=== PATIENT | male | born 1955 | race Caucasian/White ===

== ENCOUNTER → 2018-02-17 | Outpatient (CLI) | payer BC ==
[2018-02-17 08:53] LABS: ADD MAN DIFF? NO
[2018-02-17 09:00] LABS: BASO % 1 % (0-3); EOS # 0.1 x10^3/uL (0.0-0.7); EOS % 3 % (0-3); HEMATOCRIT 43.7 % (39.0-53.0); HEMOGLOBIN 15.3 g/dL (13.0-17.5); LYMPH # 0.4 x10^3/uL (1.0-4.8); LYMPH % 14 % (24-48); MEAN CORPUSCULAR HEMOGLOBIN 34 pg (25-35); MEAN CORPUSCULAR HGB CONC 35 g/dL (31-37); MEAN CORPUSCULAR VOLUME 96 fL (79-100); MONO # 0.3 x10^3/uL (0.0-1.1); MONO % 10 % (0-9); NEUT # 2.1 x10^3uL (1.8-7.7); NEUT % 71 % (31-73); PLATELET COUNT 164 x10^3/uL (140-400); RED BLOOD COUNT 4.57 x10^6/uL (4.30-5.70); RED CELL DISTRIBUTION WIDTH 13.6 % (11.5-14.5)
[2018-02-17 09:11] LABS: INR 2.9 (0.8-1.1); PARTIAL THROMBOPLASTIN TIME 56 SEC (24-38); PROTHROMBIN TIME PATIENT 29.6 SEC (11.7-14.0)
[2018-02-17 09:13] LABS: ALBUMIN 3.8 g/dL (3.4-5.0); ANION GAP 6 (6-14); BLOOD UREA NITROGEN 14 mg/dL (8-26); CALCIUM 8.7 mg/dL (8.5-10.1); CARBON DIOXIDE 29 mmol/L (21-32); CHLORIDE 108 mmol/L (98-107); CREATININE 1.1 mg/dL (0.7-1.3); GFR 67.6; GLUCOSE 93 mg/dL (70-99); POTASSIUM 3.9 mmol/L (3.5-5.1); SODIUM 143 mmol/L (136-145)
[2018-02-17 10:19] LABS: BILIRUBIN,URINE NEGATIVE (NEG); CLARITY,URINE CLEAR; COLOR,URINE YELLOW; GLUCOSE,URINE NEGATIVE (NEG); NITRITE,URINE NEGATIVE (NEG); PH,URINE 5.5; PROTEIN,URINE NEGATIVE (NEG-TRACE)
[2018-02-17 10:40] LABS: SQUAMOUS EPITHELIAL CELL,UR FEW /LPF
[2018-02-17 10:41] LABS: BACTERIA,URINE FEW /HPF (0-FEW); RBC,URINE RARE /HPF (0-2); WBC,URINE OCC /HPF (0-4)
[2018-02-17 10:46] LABS: SEDIMENTATION RATE 14 (0-15)
[2018-02-17] MEDS: PERFLUTREN PROTEIN-A MICROSPHR 0.22 MG/ML 3 ML VIAL. IV (15:11)
[2018-02-18 01:12] LABS: MRSA BY PCR Negative (Negative)
== END | disposition home or self-care (01) ==
LOC: SURGPAT 12:53
DX: Z01.818 Encounter for other preprocedural examination (principal); I10 Essential (primary) hypertension; J84.10 Pulmonary fibrosis, unspecified
CPT/HCPCS: 36415; 71046; 80048; 81001; 82040; 85025; 85610; 85651; 85730; 87641; Q9956

== ENCOUNTER 2020-01-21 12:12 | Emergency (ER) | payer BC ==
[~2020-01-21] VITALS: Ht 172.7 cm; Wt 106.6 kg
[~2020-01-21 12:12] MED LIST: ASCO500T4 PO; ASPI-630 PO; CITA20TA6 PO; ENOX40DI SQ; HYDR-2165 PO; HYDR-2765 PO; LISI-334 PO; METO100T7 PO; MULT-245 PO; OMEG-167 PO; WARF2TAB96 PO
[2020-01-21 13:53] LABS: BASO % 1 % (0-3); EOS # 0.1 x10^3/uL (0.0-0.7); EOS % 2 % (0-3); HEMATOCRIT 44.9 % (39.0-53.0); HEMOGLOBIN 15.8 g/dL (13.0-17.5); LYMPH # 0.5 x10^3/uL (1.0-4.8); LYMPH % 13 % (24-48); MEAN CORPUSCULAR HEMOGLOBIN 35 pg (25-35); MEAN CORPUSCULAR HGB CONC 35 g/dL (31-37); MEAN CORPUSCULAR VOLUME 99 fL (79-100); MONO # 0.3 x10^3/uL (0.0-1.1); MONO % 7 % (0-9); NEUT # 3.1 x10^3/uL (1.8-7.7); NEUT % 78 % (31-73); PLATELET COUNT 159 x10^3/uL (140-400); RED BLOOD COUNT 4.52 x10^6/uL (4.30-5.70)
--- NOTE | 2020-01-21 13:58 | RAD ---
RIBS LEFT AND PA CHEST History: Reason: L flank bruising and pain after fall / Spl. Instructions: / History: Technique: PA view the chest and 2 additional views of the left ribs. Comparison: February 17, 2018 Findings: No consolidation or pleural effusion. No pneumothorax. Prior median sternotomy. Unchanged heart size. Left glenohumeral DJD. No displaced rib fractures. Impression: 1. No acute cardiopulmonary process. No displaced rib fractures. Electronically signed by: Rolf Francois DO (01/21/2020 1:55 PM) [facility]
[2020-01-21 14:04] LABS: PROTHROMBIN TIME PATIENT 36.1 SEC (11.7-14.0)
--- NOTE | 2020-01-21 14:07 | EKG ---
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
[2020-01-21 14:12] LABS: CALCIUM 8.7 mg/dL (8.5-10.1); CREATININE 1.1 mg/dL (0.7-1.3); GFR 67.2; POTASSIUM 3.8 mmol/L (3.5-5.1)
[2020-01-21 14:18] LABS: ALBUMIN 3.6 g/dL (3.4-5.0); ALBUMIN/GLOBULIN RATIO 1.1 (1.0-1.7); MAGNESIUM 1.5 mg/dL (1.8-2.4); TOTAL BILIRUBIN 2.7 mg/dL (0.2-1.0); TOTAL PROTEIN 6.9 g/dL (6.4-8.2)
[2020-01-21 14:27] LABS: CREATINE KINASE 49 U/L (39-308)
[2020-01-21] MEDS ORDERED: IOHEXOL 300 MG/ML 100ML VIAL. IV ONE (14:30)
[2020-01-21] MEDS ORDERED: CONTRAST GIVEN. MC PRN (14:30)
--- NOTE | 2020-01-21 14:30 | PHYS DOC ---
Past Medical History Past Medical History: CVA, Depression, Hypertension, Other Additional Past Medical Histor: ETOH ABUSE Past Surgical History: Coronary Bypass Surgery, Other Additional Past Surgical Histo: AORTIC VALVE REPLACEMENT/HIP/HERNIA/KNEE Smoking Status: Never Smoker Alcohol Use: Heavy Additional Information: DRINKS 12 TO 18 SHOTS DAILY General Adult EDM: Chief Complaint: LACERATION/AVULSION HPI: HPI: Patient is a 64 year old male that presents to the ER with multiple complaints after falling from standing at approximately midnight today. Patient states that he was intoxicated and had consumed anywhere from 12-18 shots of whiskey. When he got up he lost his balance and fell against a concrete wall in his basement. He denies any loss of consciousness, vision changes, nausea, vomiting, numbness, tingling, or weakness after the fall. Patient complains of abrasions to his left forearm, left scalp, and left ear that continue to bleed. Patient states he takes Coumadin but has not had his INR level checked in over 6 months. He denies any headache, chest pain, shortness of breath, palpitations, dizziness, or weakness at this time. Patient states his last tetanus shot was greater than 5 years ago. He states he has a history of high blood pressure but has not taken his blood pressure medication yet today. He currently rates the pain to his left arm a 4 out of 10 on the pain scale, he denies any alleviating factors. The patient denies any decreased range of motion of the left arm. Review of Systems: Review of Systems: Constitutional: Denies fever or chills. [] Eyes: Denies change in visual acuity. [] HENT: Denies nasal congestion or sore throat. [] Respiratory: Denies cough or shortness of breath. [] Cardiovascular: Denies chest pain or edema. [] GI: Denies abdominal pain, nausea, vomiting, or diarrhea. [] : Denies hematuria Musculoskeletal: Denies back pain or joint pain. [] Integument: See HPI Neurologic: Denies headache, focal weakness or sensory changes. [] Endocrine: Denies polyuria or polydipsia. [] Lymphatic: Denies swollen glands. [] Psychiatric: Denies depression or anxiety. [] Heart Score: Risk Factors: Risk Factors: DM, Current or recent (<one month) smoker, HTN, HLP, family history of CAD, obesity. Risk Scores: Score 0 - 3: 2.5% MACE over next 6 weeks - Discharge Home Score 4 - 6: 20.3% MACE over next 6 weeks - Admit for Clinical Observation Score 7 - 10: 72.7% MACE over next 6 weeks - Early Invasive Strategies Current Medications: Current Medications Medications (Trade) Dose Ordered Sig/Kimberley Start Time Stop Time Status Last Admin Dose Admin Info (CONTRAST GIVEN -- Rx MONITORING) 1 each PRN DAILY PRN 01/21/20 14:30 01/23/20 14:29 Iohexol (Omnipaque 300 Mg/ml) 75 ml 1X ONCE 01/21/20 14:30 01/21/20 14:31 Allergies: Allergies: Allergies Coded Allergies Type Severity Reaction Last Updated Verified No Known Drug Allergies 02/17/18 No Physical Exam: PE: Constitutional: Well developed, well nourished, no acute distress, non-toxic appearance, obese. [] HENT: Normocephalic, atraumatic, bilateral external ears normal, oropharynx moist, no oral exudates, nose normal. [] Eyes: PERRLA, EOMI, conjunctiva mildly jaundiced, no discharge. [] Neck: Normal range of motion, no tenderness, supple, no stridor. [] Cardiovascular:Heart rate regular rhythm Lungs & Thorax: Bilateral breath sounds clear to auscultation, lower lateral left rib tenderness to palpation, no crepitus, no subcu emphysema, bruising noted to lower left lateral ribs [] Abdomen: soft, no tenderness, no masses Skin: Warm, dry; abrasions noted to left forearm, bleeding controlled with dressings in place; abrasions noted to left scalp without active bleeding; abrasions noted to upper aspect of left ear with bleeding controlled by bandage in place; no visible lacerations Extremities: No bony tenderness, no cyanosis, no clubbing, ROM intact, no edema. [] Neurologic: Alert and oriented X 3, fine tremors of bilateral hands noted consistent with DTs, no focal deficits noted. [] Psychologic: Affect normal, judgement normal, mood normal. [] Current Patient Data: Labs: Laboratory Tests Test 01/21/20 13:23 White Blood Count 4.0 x10^3/uL (4.0-11.0) Red Blood Count 4.52 x10^6/uL (4.30-5.70) Hemoglobin 15.8 g/dL (13.0-17.5) Hematocrit 44.9 % (39.0-53.0) Mean Corpuscular Volume 99 fL (79-100) Mean Corpuscular Hemoglobin 35 pg (25-35) Mean Corpuscular Hemoglobin Concent 35 g/dL (31-37) Red Cell Distribution Width 14.0 % (11.5-14.5) Platelet Count 159 x10^3/uL (140-400) Neutrophils (%) (Auto) 78 % (31-73) H Lymphocytes (%) (Auto) 13 % (24-48) L Monocytes (%) (Auto) 7 % (0-9) Eosinophils (%) (Auto) 2 % (0-3) Basophils (%) (Auto) 1 % (0-3) Neutrophils # (Auto) 3.1 x10^3/uL (1.8-7.7) Lymphocytes # (Auto) 0.5 x10^3/uL (1.0-4.8) L Monocytes # (Auto) 0.3 x10^3/uL (0.0-1.1) Eosinophils # (Auto) 0.1 x10^3/uL (0.0-0.7) Basophils # (Auto) 0.0 x10^3/uL (0.0-0.2) Prothrombin Time 36.1 SEC (11.7-14.0) H Prothrombin Time INR 3.6 (0.8-1.1) H Activated Partial Thromboplast Time 69 SEC (24-38) H Sodium Level 141 mmol/L (136-145) Potassium Level 3.8 mmol/L (3.5-5.1) Chloride Level 104 mmol/L (98-107) Carbon Dioxide Level 31 mmol/L (21-32) Anion Gap 6 (6-14) Blood Urea Nitrogen 13 mg/dL (8-26) Creatinine 1.1 mg/dL (0.7-1.3) Estimated GFR (Cockcroft-Gault) 67.2 BUN/Creatinine Ratio 12 (6-20) Glucose Level 101 mg/dL (70-99) H Calcium Level 8.7 mg/dL (8.5-10.1) Magnesium Level 1.5 mg/dL (1.8-2.4) L Total Bilirubin 2.7 mg/dL (0.2-1.0) H Aspartate Amino Transferase (AST) 63 U/L (15-37) H Alanine Aminotransferase (ALT) 81 U/L (16-63) H Alkaline Phosphatase 85 U/L (46-116) Creatine Kinase 49 U/L (39-308) Creatine Kinase MB (Mass) 0.9 ng/mL (0.0-3.6) Creatine Kinase MB Relative Index % (0-4) Troponin I Quantitative < 0.017 ng/mL (0.000-0.055) AO-Fuk-K-Type Natriuretic Peptide 593 pg/mL (0-124) H Total Protein 6.9 g/dL (6.4-8.2) Albumin 3.6 g/dL (3.4-5.0) Albumin/Globulin Ratio 1.1 (1.0-1.7) Ethyl Alcohol Level < 10 mg/dL (0-10) Laboratory Tests 01/21/20 13:23 Laboratory Tests 01/21/20 13:23 Vital Signs: Vital Signs Date Time Temp Pulse Resp B/P (MAP) Pulse Ox O2 Delivery O2 Flow Rate FiO2 01/21/20 12:38 98.3 76 17 214/106 (142) 96 Room Air 98.3 EKG: EK- SR rate 73, PVC present, NO STEMI read by Dr. Tong. [] Radiology/Procedures: Radiology/Procedures: PROCEDURE: RIBS LEFT AND PA CHEST RIBS LEFT AND PA CHEST History: Reason: L flank bruising and pain after fall / Spl. Instructions: / History: Technique: PA view the chest and 2 additional views of the left ribs. Comparison: February 17, 2018 Findings: No consolidation or pleural effusion. No pneumothorax. Prior median sternotomy. Unchanged heart size. Left glenohumeral DJD. No displaced rib fractures. Impression: 1. No acute cardiopulmonary process. No displaced rib fractures. PROCEDURE: CT HEAD WO CONTRAST EXAM: CT Head without IV contrast INDICATION: Reason: fall on coumadin hit left side of head / Spl. Instructions: / History: TECHNIQUE: Multi-detector row CT images were obtained of the head without the use of IV contrast. All CT scans performed at this facility utilize dose optimization techniques as appropriate to the exam, including the following: Automated exposure control and adjustment of the mA and/or KV according to patient size (this includes techniques or standardized protocols for targeted exams where dose is indication/reason for exam). COMPARISON: MRI brain without IV contrast 11/30/2009 FINDINGS: BRAIN PARENCHYMA: No evidence of acute intraparenchymal hemorrhage or infarct. Mild generalized cortical volume loss and interval chronic encephalomalacia in the left occipital lobe are noted. VENTRICLES & EXTRA-AXIAL SPACES: Ventricles are prominent in proportion to the degree of parenchymal volume loss present.. Basilar cisterns are patent. No pathologic extra-axial fluid collection or mass. ORBITS: Orbital contents are unremarkable. SINUSES: Visualized paranasal sinuses and mastoid air cells are clear. OSSEOUS & SOFT TISSUES: Calvarium and skull base are intact. IMPRESSION: No acute intracranial pathology. Chronic left occipital lobe infarct and generalized atrophy PROCEDURE: CT ABD PELV W/ IV CONTRST ONLY Exam: CT of abdomen and pelvis with contrast INDICATION: Fall on Coumadin, hit left side of head TECHNIQUE: Sequential axial images through the abdomen and pelvis obtained following the administration of 75 mL of Omni 300 IV contrast. Sagittal and coronal reformatted images were reconstructed from the axial data and reviewed. Comparisons: None FINDINGS: Heart size is normal. No pericardial effusion. Strandy opacities at dependent portion lungs likely representing atelectasis. No effusion. Liver, spleen, pancreas, gallbladder and adrenals are unremarkable. Kidneys demonstrate symmetric enhancement. No perinephric inflammation or hydronephrosis. No renal or ureteral calculi are identified. Small amount of contrast excretion noted within the renal collecting system limiting the evaluation. Bladder is decompressed not well evaluated. Prostate is not enlarged. Diverticulosis noted within the descending and sigmoid colon without evidence of acute diverticulitis. Appendix is not identified. No free intra-abdominal air or fluid. No obstruction. Abdominal aorta has a normal course and caliber. No enlarged abdominal lymph nodes are identified. No suspicious osseous lesions or acute fractures. IMPRESSION: 1. Diverticulosis without evidence of acute diverticulitis. 2. No acute process identified within the abdomen or pelvis. [] Course & Med Decision Making: Course & Med Decision Making Pertinent Labs and Imaging studies reviewed. (See chart for details) Patient is a 64-year-old male who presented to the emergency room with multiple complaints after a fall while intoxicated earlier this morning. Patient reported that he takes Coumadin but has not had his INR level checked in over 6 months. I offered the patient treatment for alcohol addiction, he declined any assistance with alcohol treatment. Work-up included CT of head, abdomen, and pelvis, chest x-ray with left ribs, and labs including CBC, CMP, UA, PT/INR, troponin, CK-MB, alcohol, BNP, and 12- lead EKG. CT head, abdomen, and pelvis were negative for any acute findings. Chest x-ray was also unremarkable. CBC is unremarkable; PT 36.1, INR 3.6, APTT 69; CMP revealed glucose of 101, magnesium of 1.5, total bilirubin of 2.7, AST of 63, ALT, 81, likely to be chronic changes due to alcoholism; patient's BNP was 593, troponin and CK index were within normal limits; patient's alcohol level was less than 10. Patient was given 500 mL of NS in the emergency department and 1 mg of Ativan. His blood pressure decreased to 185/85 after Ativan was given for tremors, therefore labetalol was held. Patient was instructed to take his blood pressure medication upon arrival back to home. I encouraged the patient to consider seeking treatment for his alcoholism and to follow-up with his primary care doctor in the next 1 to 2 days. Patient verbalized an understanding of home care, medications, follow-up, and return to ED instructions and was in agreement with the plan of care. [] Dragon Disclaimer: Dragon Disclaimer: This electronic medical record was generated, in whole or in part, using a voice recognition dictation system. Departure Departure Impression: Primary Impression: Head injury, acute, without loss of consciousness Qualified Codes: S09.90XA - Unspecified injury of head, initial encounter Additional Impressions: Fall from standing Qualified Codes: W19.XXXA - Unspecified fall, initial encounter Contusion of flank Qualified Codes: S30.1XXA - Contusion of abdominal wall, initial encounter Abrasion of left forearm, initial encounter Need for Tdap vaccination Abrasion of left ear, initial encounter Elevated liver enzymes Alcohol abuse Hypertension Qualified Codes: I10 - Essential (primary) hypertension Disposition: HOME, SELF-CARE Condition: STABLE Referrals: TIAN MCRAE MD (PCP) Patient Instructions: Abrasion, [id number], Alcoholic Liver Disease, [id number], Contusion, Bttz-vo-Ahms, Head Injury, Adult, Eqim-bm-Abce, VIS, Tetanus, Diphtheria (Td); Tetanus, Diphtheria, Pertussis (Tdap) - CDC Additional Instructions: Take you blood pressure medication and coumadin as prescribed. Your INR today was 3.6. Follow up with your primary care doctor in 1-2 days for reevaluation. Return to the ER if symptoms worsen. Justicifation of Admission Dx: Justifications for Admission: Justification of Admission Dx: No JOSE DE JESUS JERNIGAN APRN Jan 21, 2020 14:30
[2020-01-21] MEDS ORDERED: NEOMY/BACITR/POLYMYXIN OINT PACKET. TP ONE (14:45)
--- NOTE | 2020-01-21 15:03 | RAD ---
EXAM: CT Head without IV contrast INDICATION: Reason: fall on coumadin hit left side of head / Spl. Instructions: / History: TECHNIQUE: Multi-detector row CT images were obtained of the head without the use of IV contrast. All CT scans performed at this facility utilize dose optimization techniques as appropriate to the exam, including the following: Automated exposure control and adjustment of the mA and/or KV according to patient size (this includes techniques or standardized protocols for targeted exams where dose is indication/reason for exam). COMPARISON: MRI brain without IV contrast 11/30/2009 FINDINGS: BRAIN PARENCHYMA: No evidence of acute intraparenchymal hemorrhage or infarct. Mild generalized cortical volume loss and interval chronic encephalomalacia in the left occipital lobe are noted. VENTRICLES & EXTRA-AXIAL SPACES: Ventricles are prominent in proportion to the degree of parenchymal volume loss present.. Basilar cisterns are patent. No pathologic extra-axial fluid collection or mass. ORBITS: Orbital contents are unremarkable. SINUSES: Visualized paranasal sinuses and mastoid air cells are clear. OSSEOUS & SOFT TISSUES: Calvarium and skull base are intact. IMPRESSION: No acute intracranial pathology. 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
[2020-01-21] MEDS ORDERED: LORazepam 0.5 MG TABLET PO ONE (15:30)
[2020-01-21] MEDS ORDERED: LABETALOL 20 MG/4 ML DISP.SYRIN. IVP ONE (15:30)
[2020-01-21] MEDS ORDERED: IV NORMAL SALINE 500ML BAG 500 ML IV ONE (15:30)
--- NOTE | 2020-01-21 15:33 | RAD ---
Exam: CT of abdomen and pelvis with contrast INDICATION: Fall on Coumadin, hit left side of head TECHNIQUE: Sequential axial images through the abdomen and pelvis obtained following the administration of 75 mL of Omni 300 IV contrast. Sagittal and coronal reformatted images were reconstructed from the axial data and reviewed. Comparisons: None FINDINGS: Heart size is normal. No pericardial effusion. Strandy opacities at dependent portion lungs likely representing atelectasis. No effusion. Liver, spleen, pancreas, gallbladder and adrenals are unremarkable. Kidneys demonstrate symmetric enhancement. No perinephric inflammation or hydronephrosis. No renal or ureteral calculi are identified. Small amount of contrast excretion noted within the renal collecting system limiting the evaluation. Bladder is decompressed not well evaluated. Prostate is not enlarged. Diverticulosis noted within the descending and sigmoid colon without evidence of acute diverticulitis. Appendix is not identified. No free intra-abdominal air or fluid. No obstruction. Abdominal aorta has a normal course and caliber. No enlarged abdominal lymph nodes are identified. No suspicious osseous lesions or acute fractures. IMPRESSION: 1. Diverticulosis without evidence of acute diverticulitis. 2. No acute process identified within the abdomen or pelvis. Exposure: One or more of the following in the visualized dose reduction techniques were utilized for this examination: 1. Automated exposure control 2. Adjustment of the MA and/or KV according to patient size 3. Use of iterative of reconstructive technique Electronically signed by: Jyoti Wilkinson MD (01/21/2020 3:30 PM) [id number]
[2020-01-21] MEDS ORDERED: DIPH,PERTUSS(ACELL),TET VAC/PF 0.5 ML SYRINGE. VAX IM ONE (16:15)
[2020-01-21 16:33] VITALS: BP 198/86
== END 2020-01-21 16:40 | disposition home or self-care (01) ==
LOC: ER 12:12
DX: S50.312A Abrasion of left elbow, initial encounter (principal); S20.212A Contusion of left front wall of thorax, initial encounter; S00.83XA Contusion of other part of head, initial encounter; F10.229 Alcohol dependence with intoxication, unspecified; I10 Essential (primary) hypertension; F32.9 Major depressive disorder, single episode, unspecified; I97.821 Postprocedural cerebrovascular infarction following other surgery; Z98.890 Other specified postprocedural states; W18.39XA Other fall on same level, initial encounter; Y93.89 Activity, other specified; Y92.89 Other specified places as the place of occurrence of the external cause; Y99.8 Other external cause status
CPT/HCPCS: 36415; 70450; 71101; 74177; 80053; 82553; 83735; 83880; 84484; 85025; 85610; 85730; 90471; 90715; 93005; 99285; G0480; J7040; Q9967